=== PATIENT | female | born 2000 | race Caucasian/White ===

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

== ENCOUNTER → 2023-01-20 | Outpatient (CLI) | payer BC | LOC: RAD 14:00 | DX: R10.32 Left lower quadrant pain (principal) ==